=== PATIENT | male | born 1955 | race American Indian/Alaskan Native ===

== ENCOUNTER 2016-10-04 22:28 | Emergency (ER) | payer MEDICAID ==
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
[2016-10-05] MEDS ORDERED: TYLENOL #3 PO ONE (01:56)
[2016-10-05] MEDS ORDERED: RABAVERT RABIES VACCINE(PCEC) IM ONE (01:56)
[2016-10-05] MEDS ORDERED: AUGMENTIN 875 MG PO ONE (01:56)
[2016-10-05] MEDS ORDERED: hyperRAB S/D IM ONE (01:56)
[2016-10-05] MEDS ORDERED: BOOSTRIX IM ONE (02:31)
[2016-10-05 03:55] VITALS: BP 153/97
== END 2016-10-05 03:47 | disposition home or self-care (01) ==
LOC: ED 22:28
DX: S60.511A Abrasion of right hand, initial encounter (principal); J45.909 Unspecified asthma, uncomplicated; W54.0XXA Bitten by dog, initial encounter; Y93.89 Activity, other specified; Y99.9 Unspecified external cause status; Y92.89 Other specified places as the place of occurrence of the external cause
CPT/HCPCS: 90375; 90471; 90675; 90715; 96372; 99283